=== PATIENT | female | born 1970 | race Native Hawaiian/Other Pacific Islander ===

== ENCOUNTER 2020-05-04 17:30 | Emergency (ER) | payer OTHER ==
[~2020-05-04] VITALS: Ht 154.9 cm; Wt 45.4 kg
[2020-05-04 17:37] VITALS: BP 125/95; TEMP 99.4
== END 2020-05-04 19:06 | disposition home or self-care (01) ==
LOC: ED 17:30
DX: K08.89 Other specified disorders of teeth and supporting structures (principal); K02.9 Dental caries, unspecified; F17.210 Nicotine dependence, cigarettes, uncomplicated
CPT/HCPCS: 96372; 99283; J0696; J1885